=== PATIENT | male | born 1995 | race Caucasian/White ===

== ENCOUNTER 2017-02-13 18:42 | Emergency (ER) | payer MEDICAID ==
[2017-02-13 18:57] VITALS: BP 124/75
--- NOTE | 2017-02-13 19:03 | UC ---
Lower Extremity/Ankle HPI - HPI Summary HPI Summary: 21 YEAR OLD MALE PRESENTS WITH RIGHT KNEE PAIN POST FALL. - History of Current Complaint Chief Complaint: UCLowerExtremity Stated Complaint: RIGHT KNEE PAIN Time Seen by Provider: 02/13/17 19:02 Hx Obtained From: Patient Onset/Duration: Sudden Onset Severity Initially: Moderate Severity Currently: Moderate Pain Scale Used: 0-10 Numeric - 7 Aggravating Factor(s): Standing Alleviating Factor(s): Rest Able to Bear Weight: Yes - Allergies/Home Medications Allergies/Adverse Reactions: Allergies Allergy/AdvReac Type Severity Reaction Status Date / Time Aripiprazole [From Abilify] Allergy Unknown Unknown Verified 02/13/17 18:56 Reaction Details Metoclopramide [From Reglan] Allergy Unknown Unknown Verified 02/13/17 18:56 Reaction Details Prochlorperazine Allergy Unknown Unknown Verified 02/13/17 18:56 [From Compazine] Reaction Details Promethazine [From Phenergan] Allergy Unknown Unknown Verified 02/13/17 18:56 Reaction Details Sulfa Drugs Allergy Unknown Unknown Verified 02/13/17 18:56 Reaction Details Home Medications: Home Medications Atomoxetine(NF) [Strattera(NF)] 10 mg PO DAILY 02/13/17 [History Confirmed 02/13] QUEtiapine TAB* [Seroquel TAB*] 200 mg PO BEDTIME 02/13/17 [History Confirmed ] cloNIDine TAB* [Catapres 0.1 MG TAB*] 0.6 mg PO BEDTIME 02/13/17 [History Confirmed 02/13/17] PMH/Surg Hx/FS Hx/Imm Hx Previously Healthy: Yes - Surgical History Surgical History: Yes Surgery Procedure, Year, and Place: tonsilectomy - Family History Known Family History: Positive: None - Social History Alcohol Use: None Substance Use Type: None Smoking Status (MU): Heavy Every Day Tobacco Smoker Type: Cigarettes Amount Used/How Often: 1 ppd - Immunization History Vaccination Up to Date: Yes Review of Systems Constitutional: Negative Skin: Negative Eyes: Negative ENT: Negative Respiratory: Negative Cardiovascular: Negative Gastrointestinal: Negative Genitourinary: Negative Motor: Negative Neurovascular: Negative Musculoskeletal: Other: - RIGHT KNEE PAIN Neurological: Negative Psychological: Negative All Other Systems Reviewed And Are Negative: Yes Physical Exam Triage Information Reviewed: Yes Vital Signs: Initial Vital Signs Temp 37.1 C 02/13/17 18:52 Pulse 96 02/13/17 18:52 Resp 17 02/13/17 18:52 BP 124/75 02/13/17 18:52 Pulse Ox 98 02/13/17 18:52 Eye Exam: Normal ENT Exam: Normal Dental Exam: Normal Neck exam: Normal Neck: Positive: 1 Respiratory Exam: Normal Cardiovascular Exam: Normal Abdominal Exam: Normal Musculoskeletal Exam: Other - RIGHT KNEE PAIN Neurological Exam: Normal Psychological Exam: Normal Skin Exam: Normal Lower Extremity Course/Dx - Differential Dx/Diagnosis Provider Diagnoses: RIGHT KNEE PAIN Discharge - Discharge Plan Condition: Stable Disposition: HOME Prescriptions: Ibuprofen TAB* [Motrin TAB* 800 MG] 800 mg PO Q8H PRN #30 tab PRN Reason: Pain Patient Education Materials: Knee Pain (ED) Referrals: Armaan Petersen MD [Medical Doctor] - Coy Winslow, [[facility], AP[facility], OTHER] -
--- NOTE | 2017-02-13 20:05 | RAD ---
Indication: Right knee cap injury. Right knee pain. 4 views of the right knee demonstrates joint space to be intact. No fracture is identified. No joint effusion is noted. IMPRESSION: Unremarkable right knee.
== END 2017-02-13 20:14 | disposition home or self-care (01) ==
LOC: UCCORT 18:42
DX: M25.561 Pain in right knee (principal); Z88.2 Allergy status to sulfonamides; Z87.891 Personal history of nicotine dependence
CPT/HCPCS: 99213; G0463

== ENCOUNTER 2017-02-18 11:54 | Emergency (ER) | payer MEDICAID, OTHER ==
--- NOTE | 2017-02-18 12:14 | UC ---
Laceration HPI - HPI Summary HPI Summary: 21 year old male presents with complains left thumb laceration. - History Of Current Complaint Stated Complaint: LEFT THUMB LACERATION Time Seen by Provider: 02/18/17 12:14 Hx Obtained From: Patient Onset/Duration: Sudden Onset Severity: Moderate Pain Scale Used: 0-10 Numeric - 5 Aggravating Factors: Nothing - Allergies/Home Medications Allergies/Adverse Reactions: Allergies Allergy/AdvReac Type Severity Reaction Status Date / Time Aripiprazole [From Abilify] Allergy Unknown Unknown Verified 02/13/17 18:56 Reaction Details Metoclopramide [From Reglan] Allergy Unknown Unknown Verified 02/13/17 18:56 Reaction Details Prochlorperazine Allergy Unknown Unknown Verified 02/13/17 18:56 [From Compazine] Reaction Details Promethazine [From Phenergan] Allergy Unknown Unknown Verified 02/13/17 18:56 Reaction Details Sulfa Drugs Allergy Unknown Unknown Verified 02/13/17 18:56 Reaction Details PMH/Surg Hx/FS Hx/Imm Hx Previously Healthy: Yes - Surgical History Surgical History: Yes Surgery Procedure, Year, and Place: tonsilectomy - Family History Known Family History: Positive: None - Social History Alcohol Use: None Substance Use Type: None Smoking Status (MU): Heavy Every Day Tobacco Smoker Type: Cigarettes Amount Used/How Often: 1 ppd - Immunization History Vaccination Up to Date: Yes Review of Systems Constitutional: Negative Skin: Other - left thumb laceration Eyes: Negative ENT: Negative Respiratory: Negative Cardiovascular: Negative Gastrointestinal: Negative Genitourinary: Negative Motor: Negative Neurovascular: Negative Musculoskeletal: Negative Neurological: Negative Psychological: Negative All Other Systems Reviewed And Are Negative: Yes Physical Exam Triage Information Reviewed: Yes Vital Signs Reviewed: Yes Eye Exam: Normal ENT Exam: Normal Dental Exam: Normal Neck exam: Normal Neck: Positive: 1 Respiratory Exam: Normal Cardiovascular Exam: Normal Abdominal Exam: Normal Musculoskeletal Exam: Normal Neurological Exam: Normal Psychological Exam: Normal Skin Exam: Normal Skin: Positive: Other - left thumb laceration Laceration Repair - Laceration Repair 1 Laceration Size After Repair: Length (cm) - < 2.5 cm Modified For Repair: No Type Injection: Local Anesthesia Used: 1.0% Lido Cleansing Completed Via Routine Prep: Yes Irrigation With Pressure Irrigation Device: No Closure Material: Sutures - 3 stures Closure Method: Single Layer Suture Of: Skin Suture Type: Nylon - 5.0 Laceration Course/Dx - Differential Dx - Laceration/Wound Provider Diagnoses: left thumb laceration Discharge - Discharge Plan Condition: Stable Disposition: HOME Prescriptions: Cephalexin CAP* [Keflex CAP*] 500 mg PO TID #21 cap Patient Education Materials: Laceration (ED) Referrals: Filippo Pulido MD [Primary Care Provider] -
[2017-02-18] MEDS ORDERED: Lidocaine 1% MPF* 2 ML VIAL INJ ONE (12:16)
[2017-02-18] MEDS ORDERED: Tetan/Diph/Pertus SYR(Tdap)* 0.5 ML SYR(BOOSTRIX) use SYR IM ONE (12:16)
[2017-02-18 12:18] VITALS: BP 207/99
== END 2017-02-18 12:55 | disposition home or self-care (01) ==
LOC: UCCORT 11:54
DX: S61.012A Laceration without foreign body of left thumb without damage to nail, initial encounter (principal); X58.XXXA Exposure to other specified factors, initial encounter; Z88.2 Allergy status to sulfonamides; F17.210 Nicotine dependence, cigarettes, uncomplicated
CPT/HCPCS: 12001; 90471; 90715; 99212; G0463

== ENCOUNTER 2017-03-31 20:03 | Emergency (ER) | payer OTHER ==
[2017-03-31 20:14] VITALS: BP 150/86
[2017-03-31] MEDS ORDERED: HYDROcodone/ACETAMIN 5-325 MG* 1 TAB PO ONE (20:45)
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
--- NOTE | 2017-03-31 21:20 | RAD ---
INDICATION: Left hip injury. COMPARISON: There are no prior studies available for comparison. TECHNIQUE: An AP view of the pelvis and frontal and lateral views of the left hip were obtained. FINDINGS: The bones are in normal alignment. No fracture is seen. Joint spaces appear maintained. IMPRESSION: NO EVIDENCE FOR FRACTURE, IF THE PATIENT'S SYMPTOMS PERSIST RECOMMEND FOLLOW-UP IMAGING.
--- NOTE | 2017-03-31 21:21 | RAD ---
INDICATION: Left knee injury. TECHNIQUE: 2 views of the left knee were obtained. FINDINGS: The bones are in normal alignment. There appears to be a joint effusion present. No fracture is seen. Joint spaces appear maintained. IMPRESSION: JOINT EFFUSION, NO FRACTURE IS SEEN.
== END 2017-03-31 21:55 | disposition home or self-care (01) ==
LOC: UCCORT 20:03
DX: S70.02XA Contusion of left hip, initial encounter (principal); S80.02XA Contusion of left knee, initial encounter; W31.89XA Contact with other specified machinery, initial encounter; Y93.9 Activity, unspecified; Y92.9 Unspecified place or not applicable; Z88.2 Allergy status to sulfonamides; Z88.8 Allergy status to other drugs, medicaments and biological substances; F17.210 Nicotine dependence, cigarettes, uncomplicated
CPT/HCPCS: 81003; 99212; G0463